=== PATIENT | male | born 1945 | race Caucasian/White ===

== ENCOUNTER → 2017-04-03 | Outpatient (CLI) | payer MEDICARE, OTHER | LOC: MW.CHGS 08:00 | PROVIDERS: ATTEND Surgery | DX: Z86.010 Personal history of colon polyps (principal); Z96.659 Presence of unspecified artificial knee joint; Z80.9 Family history of malignant neoplasm, unspecified | CPT/HCPCS: 99204 ==

== ENCOUNTER 2017-04-28 09:02 | Day surgery (SDC) | payer MEDICARE, OTHER ==
[~2017-04-28 09:02] MED LIST: Lactated Ringers 1,000 ML IV SCH; Midazolam 1 MG/ML 2 ML SDV ONE; Propofol 200 MG/20 ML SDV ONE; fentaNYL 100 MCG/2 ML SDV ONE
--- NOTE | 2017-04-28 10:56 | PCM.PREANE ---
Preanesthetic Assessment - Anesthesia/Transfusion/Family Hx Anesthesia History: Prior Anesthesia Without Reaction Other Type of Anesthesia Reaction Comment: Reports with Pin removal they thought I was asleep and was not Family History of Anesthesia Reaction: No Transfusion History: No Prior Transfusion(s) Intubation History: Unknown - Review of Systems General: No Symptoms Pulmonary: No Symptoms Cardiovascular: No Symptoms Gastrointestinal: No symptoms Neurological: No Symptoms Other: Reports: None - Physical Assessment NPO Status Date: 04/27/17 NPO Status Time: 23:30 O2 Sat by Pulse Oximetry: 98 Respiratory Rate: 16 Vital Signs: Last Vital Signs Temp 36.3 C 04/28/17 10:31 Pulse 59 L 04/28/17 10:31 Resp 16 04/28/17 10:31 BP 140/78 04/28/17 10:31 Pulse Ox 98 04/28/17 10:31 Height: 1.88 m Weight: 115.212 kg ASA Class: 3 Mental Status: Alert & Oriented x3 Airway Class: Mallampati = 2 Dentition: Reports: Normal Dentition Thyro-Mental Finger Breadths: 3 Mouth Opening Finger Breadths: 3 ROM/Head Extension: Full Lungs: Clear to auscultation, Normal respiratory effort Cardiovascular: Regular Rate, Regular Rhythm - Allergies Allergies/Adverse Reactions: Allergies Allergy/AdvReac Type Severity Reaction Status Date / Time No Known Allergies Allergy Verified 12/08/14 13:31 - Blood Blood Available: No - Anesthesia Plan Pre-Op Medication Ordered: None - Acknowledgements Anesthesia Type Planned: MAC Pt an Appropriate Candidate for the Planned Anesthesia: Yes Alternatives and Risks of Anesthesia Discussed w Pt/Guardian: Yes Pt/Guardian Understands and Agrees with Anesthesia Plan: Yes PreAnesthesia Questionnaire HEENT History: Reports: None Cardiovascular History: Reports: PVD (s/p carotid endarectomy), Other (See Below ) (h/o bradicardia on EKG) Gastrointestinal History: Reports: Colon Polyp Genitourinary History: Reports: Renal Calculus Musculoskeletal History: Reports: Arthritis, Fracture Endocrine/Metabolic History: Reports: Obesity/BMI 30+ - Past Surgical History Head Surgeries/Procedures: Reports: None HEENT Surgical History: Reports: Cataract Surgery, Tonsillectomy Cardiovascular Surgical History: Reports: Carotid Endarterectomy GI Surgical History: Reports: Colonoscopy Musculoskeletal Surgical History: Reports: Knee Replacement Other Musculoskeletal Surgeries/Procedures:: hx prophylactic pinning of tibia, removal of pin, left TKA - SUBSTANCE USE Smoking Status *Q: Never Smoker Second Hand Smoke Exposure: No Days Per Week of Alcohol Use: 6 Number of Drinks Per Day: 1 Total Drinks Per Week: 6 Recreational Drug Use History: No - HOME MEDS Home Medications: Home Meds Aspirin 0.5 tab PO ASDIRECTED 04/24/17 [History] - CURRENT (IN HOUSE) MEDS Current Meds: Current Medications Lactated Ringer's (Ringers, Lactated) 1,000 mls @ 125 mls/hr IV ASDIRECTED [facility] Last Admin: 04/28/17 10:33 Dose: 125 mls/hr Discontinued Medications Fentanyl (Sublimaze) Confirm Administered Dose 100 mcg .ROUTE .STK-MED ONE Stop: 04/28/17 07:20 Midazolam HCl (Versed 1 Mg/Ml) Confirm Administered Dose 2 mg .ROUTE .STK-MED ONE Stop: 04/28/17 07:20 Propofol (Diprivan 20 Ml) Confirm Administered Dose 200 mg .ROUTE .STK-MED ONE Stop: 04/28/17 07:20
[2017-04-28] MEDS ORDERED: Propofol 200 MG/20 ML SDV ONE (13:00)
--- NOTE | 2017-04-28 13:26 | PCM.OPNOTE ---
- General Post-Op/Procedure Note Date of Surgery/Procedure: 04/28/17 Operative Procedure(s): Colonoscopy w/ cold ascending colon polypectomy X2 Pre Op Diagnosis: Hx of colon polyps Post-Op Diagnosis: Ascending colon polyp X2. Severe sigmoid diverticulosis Anesthesia Technique: MAC (ASA III) Primary Surgeon: Aren Gallagher Condition: Good Free Text/Narrative:: Dictation [id number] CPT code [id number]
[2017-04-28] MEDS ORDERED: Lactated Ringers 1,000 ML IV SCH (13:30)
--- NOTE | 2017-04-28 13:39 | PCM.POSTAN ---
POST ANESTHESIA ASSESSMENT - MENTAL STATUS Mental Status: alert, oriented - RESPIRATORY Respiratory Status: respiratory rate WNL, airway patent, O2 saturation stable - CARDIOVASCULAR CV Status: pulse rate WNL, blood pressure stable - GASTROINTESTINAL GI Status: no symptoms - POST OP HYDRATION Hydration Status: adequate & stable - OBSERVATIONS Free Text/Narrative:: no anesthesia problems
[2017-04-28 13:45] VITALS: BP 127/75
--- NOTE | 2017-04-28 21:05 | OR ---
SURGEON: Aren Gallagher M.D. DATE OF PROCEDURE: 04/28/2017 OPERATION PERFORMED: Colonoscopy with cold ascending colon polypectomy x2. ANESTHESIA: MAC. ASA CLASSIFICATION: III. PREOPERATIVE DIAGNOSIS: Personal history of colon polyps. POSTOPERATIVE DIAGNOSES: 1. Ascending colon polyps x2. 2. Sigmoid diverticulosis. DESCRIPTION OF PROCEDURE: The patient was taken to the endoscopy room and positioned on the endoscopy table in the left lateral decubitus position. Time-out was called for appropriate identification of the patient and procedure. Monitored anesthesia care was provided. The colonoscope was inserted into the rectum and advanced with minimal difficulty to the cecum. Prep was fair. Once the colonoscope was advanced into the cecum, it was retroflexed to visualize the ascending colon from below, then straightened and slowly withdrawn. Two small polyps were encountered in the ascending colon and removed with the cold biopsy forceps. The remainder of the ascending colon, hepatic flexure, transverse colon, splenic flexure, and descending colon showed no tumors, polyps, diverticula, or angiodysplastic changes. The patient does have severe sigmoid diverticular disease with multiple large mouth diverticula. No stricture, spasm, or bleeding was noted. No other polyps were encountered. Once the colonoscope was withdrawn to the rectum, it was retroflexed to visualize the anal orifice from above. No tumors, polyps, or acute hemorrhoidal changes were noted. The colonoscope was then straightened, the rectum aspirated, and the colonoscope removed. The patient tolerated the procedure well and was taken to recovery room in stable condition. BERNIE / LYNDSEY /[id number]
== END 2017-04-28 13:55 | disposition home or self-care (01) ==
LOC: MW.SDS 09:02
PROVIDERS: ATTEND Surgery
PROC: 0DBK8ZZ Excision of Ascending Colon, Via Natural or Artificial Opening Endoscopic (ICD-10-PCS; principal; 2017-04-28)
DX: Z12.11 Encounter for screening for malignant neoplasm of colon (principal); D12.2 Benign neoplasm of ascending colon; K57.30 Diverticulosis of large intestine without perforation or abscess without bleeding; M17.0 Bilateral primary osteoarthritis of knee; E66.9 Obesity, unspecified; Z86.010 Personal history of colon polyps; Z79.82 Long term (current) use of aspirin; Z98.49 Cataract extraction status, unspecified eye; Z96.652 Presence of left artificial knee joint; Z98.890 Other specified postprocedural states; Z68.32 Body mass index [BMI] 32.0-32.9, adult; Z87.442 Personal history of urinary calculi
CPT/HCPCS: 45380; 88305; J2250; J3010; J7120; 00810; J2704

== ENCOUNTER 2020-01-12 06:35 | Day surgery (SDC) | payer MEDICARE, OTHER ==
[~2020-01-12 06:35] MED LIST changes: +Famotidine 20 MG/2 ML SDV IVPUSH SCH; -Lactated Ringers 1,000 ML IV SCH; -Midazolam 1 MG/ML 2 ML SDV ONE; -Propofol 200 MG/20 ML SDV ONE; +Ropivacaine 49.25 ML, Ketorolac 30 MG, EPINEPHrine 0.5 MG, cloNIDine 80 MCG in Sodium C... INJECT SCH; +Scopolamine 1.5 MG Transdermal Patch TRDERM SCH; -fentaNYL 100 MCG/2 ML SDV ONE
[2020-01-12] MEDS: Lactated Ringers 1,000 ML IV SCH ×3 (07:13→21:59)
[2020-01-12] MEDS ORDERED: Ondansetron 4 MG/2 ML SDV ONE (07:17)
[2020-01-12] MEDS ORDERED: fentaNYL 100 MCG/2 ML SDV ONE (07:17)
[2020-01-12] MEDS ORDERED: Lidocaine 2% 100 MG/5 ML Syringe ONE (07:17)
[2020-01-12] MEDS ORDERED: Propofol 200 MG/20 ML SDV ONE ×3 (07:17→09:51)
[2020-01-12] MEDS ORDERED: Dexamethasone 4 MG/ML 5 ML MDV ONE (07:18)
[2020-01-12] MEDS ORDERED: Midazolam 1 MG/ML 2 ML SDV ONE (07:47)
--- NOTE | 2020-01-12 07:49 | PCM.PREANE ---
Preanesthetic Assessment - Anesthesia/Transfusion/Family Hx Anesthesia History: Prior Anesthesia Without Reaction Other Type of Anesthesia Reaction Comment: Reports with Pin removal they thought I was asleep and was not Family History of Anesthesia Reaction: No Transfusion History: No Prior Transfusion(s) Intubation History: Unknown - Review of Systems General: No Symptoms Pulmonary: No Symptoms Cardiovascular: No Symptoms Gastrointestinal: No Symptoms Neurological: No Symptoms Other: Reports: None - Physical Assessment NPO Status Date: 01/11/20 NPO Status Time: 12:00 Vital Signs: Last Vital Signs Temp Pulse 71 01/12/20 06:45 Resp 16 01/12/20 06:45 BP 150/79 H 01/12/20 06:45 Pulse Ox 99 01/12/20 06:45 Height: 6 ft 1 in Weight: 117.934 kg ASA Class: 1 Mental Status: Alert & Oriented x3 Airway Class: Mallampati = 2 Dentition: Reports: Normal Dentition ROM/Head Extension: Full Lungs: Clear to Auscultation, Normal Respiratory Effort Cardiovascular: Regular Rate, Regular Rhythm - Allergies Allergies/Adverse Reactions: Allergies Allergy/AdvReac Type Severity Reaction Status Date / Time No Known Allergies Allergy Verified 01/07/20 11:08 - Blood Blood Available: No - Anesthesia Plan Pre-Op Medication Ordered: None - Acknowledgements Anesthesia Type Planned: Spinal Pt an Appropriate Candidate for the Planned Anesthesia: Yes Alternatives and Risks of Anesthesia Discussed w Pt/Guardian: Yes Pt/Guardian Understands and Agrees with Anesthesia Plan: Yes Additional Comments: PMH: denies htn PLAN: spinal with sedation PreAnesthesia Questionnaire HEENT History: Reports: Cataract Cardiovascular History: Reports: PVD, Other (See Below) Gastrointestinal History: Reports: Colon Polyp, Diverticulosis Genitourinary History: Reports: Renal Calculus Other Genitourinary History: passed 1 kidney stone 35 years ago Musculoskeletal History: Reports: Osteoarthritis Endocrine/Metabolic History: Reports: Obesity/BMI 30+ Oncologic (Cancer) History: Reports: Other (See Below) Other Oncologic History: hx of skin cancer removed from nose- unknown type - Past Surgical History Head Surgeries/Procedures: Reports: None HEENT Surgical History: Reports: Cataract Surgery, Tonsillectomy Cardiovascular Surgical History: Reports: Carotid Endarterectomy GI Surgical History: Reports: Colonoscopy Musculoskeletal Surgical History: Reports: Knee Replacement, ORIF Other Musculoskeletal Surgeries/Procedures:: ORIF left tibia- hardware removed, left TKA Dermatological Surgical History: Reports: Skin Biopsy - SUBSTANCE USE Smoking Status *Q: Never Smoker Recreational Drug Use History: No - HOME MEDS Home Medications: Home Meds Aspirin 0.5 tab PO ASDIRECTED 04/24/17 [History] Sildenafil Citrate 40 - 60 mg PO ASDIRECTED PRN 01/07/20 [History] - CURRENT (IN HOUSE) MEDS Current Meds: Current Medications Famotidine (Pepcid) 40 mg IVPUSH ONARRIVE [facility] Last Admin: 01/12/20 07:17 Dose: 40 mg Cefazolin Sodium/Dextrose 2 gm (/ Premix) 50 mls @ 100 mls/hr IV ONCALL [facility] Ropivacaine 49.25 ml/Ketorolac Tromethamine 30 mg/Epinephrine HCl 0.5 mg/ Clonidine HCl 80 mcg/ Sodium Chloride 75 mls @ 50 mls/sec INJECT ASDIRECTED [facility] Lactated Ringer's (Ringers, Lactated) 1,000 mls @ 100 mls/hr IV ASDIRECTED [facility] Last Admin: 01/12/20 07:13 Dose: 100 mls/hr Scopolamine (Transderm-Scop) 1.5 mg TRDERM ON[facility] Last Admin: 01/12/20 07:13 Dose: 1.5 mg Discontinued Medications Dexamethasone (Dexamethasone) Confirm Administered Dose 20 mg .ROUTE .STK-MED ONE Stop: 01/12/20 07:19 Fentanyl (Sublimaze) Confirm Administered Dose 100 mcg .ROUTE .STK-MED ONE Stop: 01/12/20 07:18 Lidocaine HCl (Xylocaine 2%) Confirm Administered Dose 100 mg .ROUTE .STK-MED ONE Stop: 01/12/20 07:18 Ondansetron HCl (Zofran) Confirm Administered Dose 4 mg .ROUTE .STK-MED ONE Stop: 01/12/20 07:18 Propofol (Diprivan 20 Ml) Confirm Administered Dose 200 mg .ROUTE .STK-MED ONE Stop: 01/12/20 07:18 Propofol (Diprivan 20 Ml) Confirm Administered Dose 400 mg .ROUTE .STK-MED ONE Stop: 01/12/20 07:25 Tranexamic Acid (Cyklokapron) 1,000 mg TOP ASDIRECTED ONE Stop: 01/12/20 06:01
[2020-01-12] MEDS ORDERED: ceFAZolin/Dextrose,Iso-Osmotic 2 GM/50 ML Duplex Bag IV ONE (07:50)
[2020-01-12] MEDS ORDERED: ceFAZolin 2 GM in Premix Bag 1 BAG IV SCH (08:00)
[2020-01-12] MEDS ORDERED: ePHEDrine 50 MG/ML SDV ONE (08:29)
[2020-01-12] MEDS ORDERED: fentaNYL 100 MCG/2 ML SDV IVPUSH PRN (08:43)
[2020-01-12] MEDS ORDERED: Acetaminophen/oxyCODONE 325-5 MG Tab PO PRN (09:59)
[2020-01-12] MEDS ORDERED: Docusate Sodium 100 MG Cap PO PRN (09:59)
[2020-01-12] MEDS ORDERED: Bisacodyl 10 MG Supp RECTAL PRN (09:59)
[2020-01-12] MEDS ORDERED: Aluminum Hydroxide/Magnesium Hydroxide/Simethicone Susp 30 ML Cup PO PRN (09:59)
[2020-01-12] MEDS ORDERED: Sodium Chloride 0.9% 10 ML Syringe FLUSH PRN (09:59)
[2020-01-12] MEDS ORDERED: Acetaminophen/oxyCODONE 325-10 MG Tab PO PRN (09:59)
[2020-01-12] MEDS ORDERED: diphenhydrAMINE 25 MG Cap PO PRN (09:59)
[2020-01-12] MEDS ORDERED: Sodium Chloride 0.9% 2.5 ML Syringe FLUSH PRN (09:59)
[2020-01-12] MEDS ORDERED: Morphine 2 MG/ML Syringe IVPUSH PRN (09:59)
[2020-01-12] MEDS ORDERED: traMADol 50 MG Tab PO PRN (09:59)
[2020-01-12] MEDS ORDERED: Ondansetron 4 MG/2 ML SDV IVPUSH PRN (09:59)
--- NOTE | 2020-01-12 11:03 | CR ---
Right knee: Portable supine AP and crosstable lateral views of the right knee were obtained. Comparison: Previous right knee study of 12/16/19. Medial hemiarthroplasty is noted. Components are aligned. Soft tissue air is noted from the surgical procedure. Vascular calcification is noted. Skin cory are present. Impression: 1. Recently placed medial hemiarthroplasty. 2. Other findings which are believed to be incidental as noted above. Diagnostic code #2 This report was dictated in [place] Standard Time
--- NOTE | 2020-01-12 11:08 | PCM.POSTAN ---
POST ANESTHESIA ASSESSMENT - MENTAL STATUS Mental Status: Alert, Oriented - VITAL SIGNS Vital Signs: Last Vital Signs Temp 37.3 C 01/12/20 10:20 Pulse 60 01/12/20 11:02 Resp 14 01/12/20 11:02 BP 110/57 L 01/12/20 11:02 Pulse Ox 95 01/12/20 11:02 - RESPIRATORY Respiratory Status: Respiratory Rate WNL, Airway Patent, O2 Saturation Stable - CARDIOVASCULAR CV Status: Pulse Rate WNL, Blood Pressure Stable - GASTROINTESTINAL GI Status: No Symptoms - PAIN Pain Score: 0 - POST OP HYDRATION Hydration Status: Adequate & Stable - OBSERVATIONS Free Text/Narrative:: sensory level T12
[2020-01-12] MEDS: Ketorolac 15 MG/ML SDV IVPUSH SCH ×3 (11:43→21:43)
--- NOTE | 2020-01-12 14:47 | PCM.OPNOTE ---
- General Post-Op/Procedure Note Date of Surgery/Procedure: 01/12/20 Operative Procedure(s): right pka Pre Op Diagnosis: right knee primary oa Post-Op Diagnosis: Same Anesthesia Technique: Combo Spinal/Epidural, Moderate Sedation Primary Surgeon: Jorge Cortez Language Therapist: Ginny Barney EBL in mLs: 75 Complications: None Condition: Good Free Text/Narrative:: Intake & Output 01/11/20 01/12/20 01/12/20 22:59 06:59 14:59 Intake Total 1200 Output Total 250 Balance 950
--- NOTE | 2020-01-12 17:13 | PCM.DCSUM1 ---
Discharge Summary - Hospital Course Diagnosis: Stroke: No - Discharge Data Discharge Date: 01/13/20 Discharge Disposition: Home, Self-Care 01 Condition: Good - Referral to Home Health Primary Care Physician: Nelson Portillo MD - Discharge Diagnosis/Problem(s) (1) Arthritis of knee, right SNOMED Code(s): 943588779 ICD Code: M17.11 - UNILATERAL PRIMARY OSTEOARTHRITIS, RIGHT KNEE Status: Acute Current Visit: Yes - Patient Summary/Data Operative Procedure(s) Performed: right pka Consults: Consultations 01/12/20 09:59 OT Evaluation and Treatment [CONS] Routine PT Evaluation and Treatment [CONS] Routine - Patient Instructions Diet: Usual Diet as Tolerated Activity: Apply Ice, As Tolerated, Full Weight Bearing, No Strenuous Activities Driving: Do Not Drive Showering/Bathing: May Shower Wound/Incision Care: Keep Operative Site/Wound Site Clean and Dry, Change Dressing Daily Notify Provider of: Fever, Increased Pain, Swelling and Redness, Drainage, Nausea and/or Vomiting - Discharge Plan *PRESCRIPTION DRUG MONITORING PROGRAM REVIEWED*: Yes *COPY OF PRESCRIPTION DRUG MONITORING REPORT IN PATIENT KARLEE: No Home Medications: Home Meds Aspirin 0.5 tab PO ASDIRECTED 04/24/17 [History] Sildenafil Citrate 40 - 60 mg PO ASDIRECTED PRN 01/07/20 [History] Oxygen Therapy Mode: Room Air - Discharge Summary/Plan Comment DC Time >30 min.: No - General Info Date of Service: 01/13/20 Functional Status: Reports: Pain Controlled, Tolerating Diet, Ambulating, Urinating - Review of Systems General: Reports: No Symptoms HEENT: Reports: No Symptoms Pulmonary: Reports: No Symptoms Cardiovascular: Reports: No Symptoms Gastrointestinal: Reports: No Symptoms Genitourinary: Reports: No Symptoms Musculoskeletal: Reports: Leg Pain, Joint Pain, Joint Swelling Skin: Reports: No Symptoms Neurological: Reports: No Symptoms Psychiatric: Reports: No Symptoms - Patient Data Vitals - Most Recent: Last Vital Signs Temp 37.3 C 01/12/20 10:20 Pulse 60 01/12/20 11:02 Resp 14 01/12/20 11:02 BP 110/57 L 01/12/20 11:02 Pulse Ox 95 01/12/20 11:02 Weight - Most Recent: 117.934 kg I&O - Last 24 hours: Intake & Output 01/12/20 01/12/20 01/12/20 06:59 14:59 22:59 Intake Total 1200 Output Total 250 Balance 950 Lab Results - Last 24 hrs: Laboratory Results - last 24 hr 01/12/20 Range/Units 07:13 Blood Type A POSITIVE Antibody Screen NEGATIVE Med Orders - Current: Current Medications Al Hydroxide/Mg Hydroxide (Mag-Al Plus) 30 ml PO Q4H PRN PRN Reason: Indigestion Aspirin (Aspirin) 325 mg PO DAILY [facility] Bisacodyl (Dulcolax) 10 mg RECTAL DAILY PRN PRN Reason: Constipation Celecoxib (Celebrex) 200 mg PO BID [facility] Diphenhydramine HCl (Benadryl) 25 - 50 mg PO Q6H PRN PRN Reason: Itching Docusate Sodium (Colace) 100 mg PO BID PRN PRN Reason: Constipation Famotidine (Pepcid) 40 mg IVPUSH ONARRIVE [facility] Last Admin: 01/12/20 07:17 Dose: 40 mg Famotidine (Pepcid) 40 mg PO ACBREAKFAST [facility] Fentanyl (Sublimaze) 50 mcg IVPUSH Q5M PRN PRN Reason: Pain (severe 7-10) Stop: 01/13/20 08:44 Cefazolin Sodium/Dextrose 2 gm (/ Premix) 50 mls @ 100 mls/hr IV ONCALL [facility] Ropivacaine 49.25 ml/Ketorolac Tromethamine 30 mg/Epinephrine HCl 0.5 mg/ Clonidine HCl 80 mcg/ Sodium Chloride 75 mls @ 50 mls/sec INJECT ASDIRECTED [facility] Lactated Ringer's (Ringers, Lactated) 1,000 mls @ 100 mls/hr IV ASDIRECTED [facility] Last Admin: 01/12/20 11:43 Dose: 100 mls/hr Cefazolin Sodium/Dextrose 2 gm (/ Premix) 50 mls @ 100 mls/hr IV Q8H [facility] Stop: 01/13/20 02:29 Ketorolac Tromethamine (Toradol) 15 mg IVPUSH Q6H [facility] Stop: 01/13/20 05:00 Last Admin: 01/12/20 16:45 Dose: 15 mg Morphine Sulfate (Morphine) 1 - 2 mg IVPUSH Q3H PRN PRN Reason: Pain Ondansetron HCl (Zofran) 4 mg IVPUSH Q6H PRN PRN Reason: Nausea/Vomiting Oxycodone/Acetaminophen (Percocet 325-5 Mg) 1 - 2 tab PO Q4H PRN PRN Reason: Pain Oxycodone/Acetaminophen (Percocet 325-10 Mg) 1 - 2 tab PO Q4H PRN PRN Reason: Pain Polyethylene Glycol (Miralax) 17 gm PO DAILY [facility] Scopolamine (Transderm-Scop) 1.5 mg TRDERM ONARRIVE [facility] Last Admin: 01/12/20 07:13 Dose: 1.5 mg Sodium Chloride (Saline Flush) 10 ml FLUSH ASDIRECTED PRN PRN Reason: Keep Vein Open Sodium Chloride (Saline Flush) 2.5 ml FLUSH ASDIRECTED PRN PRN Reason: Keep Vein Open Tramadol HCl (Ultram) 50 - 100 mg PO Q6H PRN PRN Reason: Pain Discontinued Medications Cefazolin Sodium/Dextrose (Ancef) Confirm Administered Dose 2 gm IV .STK-MED ONE Stop: 01/12/20 07:51 Dexamethasone (Dexamethasone) Confirm Administered Dose 20 mg .ROUTE .STK-MED ONE Stop: 01/12/20 07:19 Ephedrine Sulfate (Ephedrine Sulfate) Confirm Administered Dose 50 mg .ROUTE .STK-MED ONE Stop: 01/12/20 08:30 Fentanyl (Sublimaze) Confirm Administered Dose 100 mcg .ROUTE .STK-MED ONE Stop: 01/12/20 07:18 Lidocaine HCl (Xylocaine 2%) Confirm Administered Dose 100 mg .ROUTE .STK-MED ONE Stop: 01/12/20 07:18 Midazolam HCl (Versed 1 Mg/Ml) Confirm Administered Dose 2 mg .ROUTE .STK-MED ONE Stop: 01/12/20 07:48 Ondansetron HCl (Zofran) Confirm Administered Dose 4 mg .ROUTE .STK-MED ONE Stop: 01/12/20 07:18 Propofol (Diprivan 20 Ml) Confirm Administered Dose 200 mg .ROUTE .STK-MED ONE Stop: 01/12/20 07:18 Propofol (Diprivan 20 Ml) Confirm Administered Dose 400 mg .ROUTE .STK-MED ONE Stop: 01/12/20 07:25 Propofol (Diprivan 20 Ml) Confirm Administered Dose 200 mg .ROUTE .STK-MED ONE Stop: 01/12/20 09:52 Tranexamic Acid (Cyklokapron) 1,000 mg TOP ASDIRECTED ONE Stop: 01/12/20 06:01 Tranexamic Acid (Cyklokapron) Confirm Administered Dose 3,000 mg .ROUTE .STK- MED ONE Stop: 01/12/20 07:51 - Exam General: Reports: Alert, Oriented, Cooperative, Mild Distress HEENT: Reports: Pupils Equal, Pupils Reactive, EOMI, Mucous Membr. Moist/[place] Neck: Reports: Supple, Trachea Midline Lungs: Reports: Normal Respiratory Effort Extremities: Leg Pain, Limited Range of Motion Skin: Reports: Warm, Dry, Intact Wound/Incisions: Reports: Healing Well, Dressing Dry and Intact, No Drainage Neurological: Reports: No New Focal Deficit Psy/Mental Status: Reports: Alert, Normal Affect, Normal Mood Discharge Operative/Procedures - Procedures Performed Operations: right medial pka LP Indication: CSF analysis Arterial Line Indication: hemodynamic monitoring Chest Tube Indication: pneumothorax Thoracentesis Indication: pleural effusion Paracentesis Indication: ascites
--- NOTE | 2020-01-12 17:22 | OR ---
SURGEON: Jorge Cortez DATE OF PROCEDURE: 01/12/2020 PREOPERATIVE DIAGNOSIS: Right knee primary osteoarthritis. POSTOPERATIVE DIAGNOSIS: Right knee primary osteoarthritis. PROCEDURE: Right knee partial knee arthroplasty medially. PRIMARY SURGEON: Jorge Cortez DO. WEIGHT INSPECTOR: ASH Lau. ROLE OF WEIGHT INSPECTOR: Nurse practitioner, ASH Lau, played an essential role in assisting in this case, helping to position the patient, retract structures as needed, as well as suturing and cutting sutures as indicated. Her presence improved patient's safety and decreased operative time. ANESTHESIA: Spinal plus conscious sedation. FLUID: Lactated Ringer's solution. ESTIMATED BLOOD LOSS: 75 mL. COMPLICATION: None. SPECIMEN: None. DISCHARGE DISPOSITION: Stable to PACU. INSTRUMENTATION: DePuy Sigma fixed bearing size 4 tibial tray; size 4 femur; and size 4, 7 mm polyethylene fixed bearing tibial insert. HISTORY AND INDICATIONS FOR THE PROCEDURE: The patient was seen preoperatively by myself in the clinic. He had failed nonoperative treatment. Preoperative imaging confirmed the above-mentioned diagnosis. Risks and benefits of the procedure were explained to the patient. Informed consent was obtained. DETAILS OF PROCEDURE: The patient was seen preoperatively by myself and the Anesthesia staff in the preoperative holding area where the operative site was marked. He was brought to the operative suite by the Anesthesia staff where spinal sedation was administered plus conscious sedation. A well-padded tourniquet was placed onto his right thigh. The left lower extremity was placed into a stirrup. All extremities were found to be well padded. The right lower extremity was placed into a leg hlom. The right lower extremity was then prepped and draped in a sterile manner. Time-out was called identifying the correct patient, the correct procedure, the correct site, and that antibiotics had been given within appropriate period of time. The right lower extremity was exsanguinated. Tourniquet was raised to 250 mmHg and let down at 48 minutes after cementing. A midline incision was made two fingerbreadths proximal to the patella down to the level of the tibial tubercle. Medial parapatellar arthrotomy was made. Bleeding was controlled with Bovie electrocautery. Gelpis were used for initial retraction. The anterior portion of the medial meniscus was removed. The fat pad was removed. The proximal medial tibial was visualized using Bovie electrocautery. An extramedullary tibial guide was then inserted in line with the tibial tubercle and the 2nd metatarsal and pinned into position. A vertical cut was made in line with the anterior superior iliac spine just medial to the medial tibial spine and then a horizontal cut was made. I inserted my paddle, it was not wide enough, so I made another cut which was correct at 7 mm with a 7 mm paddle. I then removed the insert. I then brought the knee into extension and pinned my distal femoral cutting guide in position. I then made my distal femoral cut. I then removed the cutting guide and marked mid portion of my paddle in flexion and extension and marlen a line with this with a Bovie. I then inserted my chamfer guide in line with this line that I previously made. I pinned this in position and made my three chamfer cuts. I then removed my guide and then used an osteotome to remove any extra bone that I cut. I had also drilled two lug holes prior with a guide. I then inserted my distal femoral trial, which went on well. I removed that and then placed my tibial base plate guide for the fin. I used a lamina anthropologist physical to hold this in place. I then used a gouge and created a slot for my fin on the keel for the base plate. I then drilled the lug for that. I then removed all my components, copiously irrigated with saline, and then cemented my components in place. The tourniquet was let down during this time at 48 minutes. After the cement had dried, I removed any extra cement and then inserted my final base plate. I ranged the knee and this provided excellent stability throughout range of motion. We then copiously irrigated with saline and my diploma dental assistant closed with 0 Stratafix and #1 Stratafix for the parapatellar arthrotomy and subcutaneous levels and then closed with cory followed by Betadine-soaked Adaptic, fluffs, and an Heath wrap. The patient was allowed to awaken from conscious sedation, taken to the PACU in stable condition. [id number] / MODL /[id number]
[2020-01-12] MEDS: ceFAZolin 2 GM in Premix Bag 1 BAG IV SCH (18:11)
[2020-01-13] MEDS: ceFAZolin 2 GM in Premix Bag 1 BAG IV SCH (01:31)
[2020-01-13] MEDS: Ketorolac 15 MG/ML SDV IVPUSH SCH (05:11)
[2020-01-13 06:34] LABS: BLOOD UREA NITROGEN,BUN 14 mg/dL (7.0-18.0); CARBON DIOXIDE,CO2 23.7 mmol/L (21.0-32.0); CHLORIDE,CL 105 mmol/L (98-107); GLUCOSE RANDOM 110 mg/dL (74-106); POTASSIUM,K 3.9 mmol/L (3.5-5.1); SODIUM,NA 140 mmol/L (136-148)
[2020-01-13] MEDS ORDERED: Famotidine 20 MG Tab PO SCH (07:30)
[2020-01-13 07:38] VITALS: BP 146/87; PULSE 72
[2020-01-13] MEDS ORDERED: Celecoxib 100 MG Cap PO SCH (09:00)
[2020-01-13] MEDS ORDERED: Polyethylene Glycol 3350 Powder 17 GM Packet PO SCH (09:00)
[2020-01-13] MEDS ORDERED: Aspirin 325 MG Tab PO SCH (09:00)
== END 2020-01-13 11:28 | disposition home or self-care (01) ==
LOC: MW.SDS 06:35 → MW.MS 06:36 → UNDOADMIN 06:36 → EDSTATUS 08:00 → MW.MS 15:13 → MW.SDS 01-13 11:28
PROVIDERS: ATTEND Orthopaedic Surgery
DX: M17.11 Unilateral primary osteoarthritis, right knee (principal); I10 Essential (primary) hypertension; E66.9 Obesity, unspecified; Z79.82 Long term (current) use of aspirin; Z96.652 Presence of left artificial knee joint; Z68.34 Body mass index [BMI] 34.0-34.9, adult
CPT/HCPCS: 27446; 36415; 73560; 80048; 85014; 85018; 86850; 86900; 86901; 97110; 97116; 97161; A9270; C1776; J0690; J1100; J1885; J2001; J2250; J2405; J2704; J3010; J3490; J7120

== ENCOUNTER 2020-08-04 06:32 | Day surgery (SDC) | payer MEDICARE, OTHER ==
[~2020-08-04 06:32] MED LIST changes: -Famotidine 20 MG/2 ML SDV IVPUSH SCH; +Lactated Ringers 1,000 ML IV SCH; -Ropivacaine 49.25 ML, Ketorolac 30 MG, EPINEPHrine 0.5 MG, cloNIDine 80 MCG in Sodium C... INJECT SCH; -Scopolamine 1.5 MG Transdermal Patch TRDERM SCH; +cefOXitin 2 GM in Premix Bag 1 BAG IV ONE
[2020-08-04] MEDS ORDERED: Lidocaine 2% 5 ML SDV ONE (07:02)
[2020-08-04] MEDS ORDERED: Propofol 200 MG/20 ML SDV ONE (07:02)
[2020-08-04] MEDS ORDERED: fentaNYL 100 MCG/2 ML SDV ONE (07:02)
--- NOTE | 2020-08-04 07:25 | PCM.PREANE ---
Preanesthetic Assessment - Anesthesia/Transfusion/Family Hx Anesthesia History: Prior Anesthesia Without Reaction Other Type of Anesthesia Reaction Comment: Reports with Pin removal they thought I was asleep and was not Family History of Anesthesia Reaction: No Transfusion History: No Prior Transfusion(s) Intubation History: Unknown - Review of Systems General: No Symptoms Pulmonary: No Symptoms Cardiovascular: No Symptoms Gastrointestinal: Other (h/o colon polyp 3 years ago) Neurological: No Symptoms Other: Reports: None - Physical Assessment Height: 6 ft 1 in Weight: 108.862 kg ASA Class: 2 Mental Status: Alert & Oriented x3 Airway Class: Mallampati = 2 Dentition: Reports: Normal Dentition Thyro-Mental Finger Breadths: 3 Mouth Opening Finger Breadths: 2 ROM/Head Extension: Full Lungs: Clear to Auscultation, Normal Respiratory Effort Cardiovascular: Regular Rate, Regular Rhythm - Allergies Allergies/Adverse Reactions: Allergies Allergy/AdvReac Type Severity Reaction Status Date / Time No Known Allergies Allergy Verified 07/31/20 13:33 - Blood Blood Available: No - Anesthesia Plan Pre-Op Medication Ordered: None - Acknowledgements Anesthesia Type Planned: MAC Pt an Appropriate Candidate for the Planned Anesthesia: Yes Alternatives and Risks of Anesthesia Discussed w Pt/Guardian: Yes Pt/Guardian Understands and Agrees with Anesthesia Plan: Yes PreAnesthesia Questionnaire HEENT History: Reports: Cataract Cardiovascular History: Reports: High Cholesterol Gastrointestinal History: Reports: Colon Polyp, Diverticulosis Genitourinary History: Reports: Renal Calculus Other Genitourinary History: hx of passing kidney stone Musculoskeletal History: Reports: Osteoarthritis Endocrine/Metabolic History: Reports: Obesity/BMI 30+ (BMI 31.7) Oncologic (Cancer) History: Reports: Other (See Below) Other Oncologic History: skin cancer removed from nose- unknown type - Past Surgical History Head Surgeries/Procedures: Reports: None HEENT Surgical History: Reports: Cataract Surgery, Tonsillectomy GI Surgical History: Reports: Colonoscopy ( x4) Musculoskeletal Surgical History: Reports: Knee Replacement (lt. TKR 7 months ago), Other (See Below) (pinning of tibia and subsequent pin removal) Other Musculoskeletal Surgeries/Procedures:: bilateral TKA Dermatological Surgical History: Reports: Skin Biopsy - SUBSTANCE USE Smoking Status *Q: Never Smoker Days Per Week of Alcohol Use: 7 Number of Drinks Per Day: 1 Total Drinks Per Week: 7 Recreational Drug Use History: No - HOME MEDS Home Medications: Home Meds Sildenafil Citrate 40 - 60 mg PO ASDIRECTED PRN 01/07/20 [History] - CURRENT (IN HOUSE) MEDS Current Meds: Current Medications Lactated Ringer's (Ringers, Lactated) 1,000 mls @ 125 mls/hr IV ASDIRECTED NICHELLE Discontinued Medications Fentanyl (Sublimaze) Confirm Administered Dose 100 mcg .ROUTE .STK-MED ONE Stop: 08/04/20 07:03 Cefoxitin Sodium 2 gm/ Premix 50 mls @ 100 mls/hr IV ONETIME ONE Stop: 08/04/20 06:59 Lidocaine (Xylocaine-Mpf 2%) Confirm Administered Dose 5 ml .ROUTE .STK-MED ONE Stop: 08/04/20 07:03 Propofol (Diprivan 20 Ml) Confirm Administered Dose 400 mg .ROUTE .STK-MED ONE Stop: 08/04/20 07:03
[2020-08-04] MEDS ORDERED: Sodium Chloride 0.9% 20 ML ONE (07:47)
[2020-08-04] MEDS ORDERED: cefOXitin 1 GM Vial ONE (07:47)
[2020-08-04] MEDS ORDERED: Glycopyrrolate 0.2 MG/ML SDV ONE (07:54)
--- NOTE | 2020-08-04 08:35 | PCM.OPNOTE ---
- General Post-Op/Procedure Note Date of Surgery/Procedure: 08/04/20 Operative Procedure(s): Colonoscopy with cold ascending colon, mid transverse colon, distal transverse colon and rectal polypectomies. Pre Op Diagnosis: Personal history of adenomatous colon polyps. Pancolonic diverticulosis. Post-Op Diagnosis: Ascending colon, mid transverse colon, distal transverse colon and rectal polyps. Pancolonic diverticulosis. Anesthesia Technique: MAC (ASA III) Primary Surgeon: Aren Gallagher Condition: Good Free Text/Narrative:: DICTATION 000607 CPT CODE 76448
[2020-08-04] MEDS ORDERED: Lactated Ringers 1,000 ML IV SCH (08:45)
[2020-08-04 08:55] VITALS: BP 121/64; PULSE 72
--- NOTE | 2020-08-04 09:03 | PCM.POSTAN ---
POST ANESTHESIA ASSESSMENT - MENTAL STATUS Mental Status: Alert, Oriented - VITAL SIGNS Vital Signs: Last Vital Signs Temp 36.4 C 08/04/20 06:45 Pulse 72 08/04/20 08:50 Resp 14 08/04/20 08:50 BP 121/64 08/04/20 08:50 Pulse Ox 98 08/04/20 08:50 - RESPIRATORY Respiratory Status: Respiratory Rate WNL, Airway Patent, O2 Saturation Stable - CARDIOVASCULAR CV Status: Pulse Rate WNL, Blood Pressure Stable, Other (slightly irregular HR, EKG shows A. fib- controlled rate) - GASTROINTESTINAL GI Status: No Symptoms - PAIN Pain Score: 0 - POST OP HYDRATION Hydration Status: Adequate & Stable - OBSERVATIONS Free Text/Narrative:: No anesthesia problems
--- NOTE | 2020-08-04 09:11 | CR ---
Chest: Portable view of the chest was obtained. Comparison: Prior chest x-ray of 12/30/19. Slight scar is noted within the right lung base. Lungs otherwise are clear. No acute parenchymal change is seen. Heart size is within normal limits for portable technique. Bony structures are grossly intact. Impression: 1. Nothing acute is seen on portable chest x-ray. Diagnostic code #2 This report was dictated in MDT
--- NOTE | 2020-08-04 09:26 | OR ---
SURGEON: Aren Gallagher M.D. DATE OF PROCEDURE: 08/04/2020 OPERATION PERFORMED: Colonoscopy with cold; ascending colon, mid transverse colon, distal transverse colon, and rectal polypectomy. PRIMARY SURGEON: Aren Gallagher MD. ANESTHESIA: MAC. ASA CLASSIFICATION: III. PREOPERATIVE DIAGNOSES: 1. Personal history of adenomatous colon polyps. 2. Diverticulosis. POSTOPERATIVE DIAGNOSES: 1. Ascending colon polyp. 2. Mid transverse colon polyp. 3. Distal transverse colon polyp. 4. Rectal polyp. 5. Pancolonic diverticulosis. DESCRIPTION OF PROCEDURE: The patient was taken to the endoscopy room and positioned on the endoscopy table in the left lateral decubitus position. Time-out was called for appropriate identification of the patient and procedure. Monitored anesthesia care was provided. The colonoscope was inserted into the rectum and advanced with moderate difficulty to the cecum. The prep was only fair as there was a moderate amount of solid fecal material in the distal bowel. Once the colonoscope was inserted to the cecum, this was identified by internal landmarks and external pressure. The colonoscope was retroflexed to visualize the ascending colon from below, then straightened, and slowly withdrawn. One polyp was encountered in the ascending colon and removed with a cold biopsy forceps. Diverticular changes were noted beginning in the ascending colon and extending throughout the entire length of the colon with the most significant area again being the sigmoid colon. Small polyps were also encountered in the mid transverse colon and distal transverse colon. These were separately removed and sent for separate histologic analysis. The hepatic and splenic flexures were well visualized. No polyps were encountered at those areas. The descending colon again shows diverticular changes, but no polyps. No polyps were encountered in the sigmoid colon which demonstrated severe diverticular change. No stricture, spasm, or bleeding was noted from any of the diverticula. Once the colonoscope was withdrawn to the rectum, another polyp was encountered and this was also removed with the cold biopsy forceps. The colonoscope was then retroflexed to visualize the anal orifice from above. Again no tumors or polyps were encountered in the retroflexed position and no significant hemorrhoidal changes are noted. The colonoscope was then straightened, the rectum aspirated, and the colonoscope removed. The patient tolerated the procedure well and was taken to recovery room in satisfactory condition. ANDCHRISTOPHE / MODL /[id number]
--- NOTE | 2020-08-04 09:39 | PCM48HPAN ---
Post Anesthesia Note - EVALUATION WITHIN 48HRS OF ANESTHETIC Vital Signs in Normal Range: Yes Patient Participated in Evaluation: Yes Respiratory Function Stable: Yes Airway Patent: Yes Cardiovascular Function Stable: Yes Hydration Status Stable: Yes Pain Control Satisfactory: Yes Nausea and Vomiting Control Satisfactory: Yes Mental Status Recovered: Yes Vital Signs: Last Vital Signs Temp 36.4 C 08/04/20 06:45 Pulse 72 08/04/20 08:50 Resp 14 08/04/20 08:50 BP 121/64 08/04/20 08:50 Pulse Ox 98 08/04/20 08:50 - COMMENTS/OBSERVATIONS Free Text/Narrative:: No anesthesia problems, patient sent to dr Sims office for the care of new george marcum
[2020-08-04 10:21] LABS: BLOOD UREA NITROGEN,BUN 13 mg/dL (7.0-18.0); CARBON DIOXIDE,CO2 25.9 mmol/L (21.0-32.0); CHLORIDE,CL 105 mmol/L (98-107); GLUCOSE RANDOM 108 mg/dL (74-106); POTASSIUM,K 4.5 mmol/L (3.5-5.1); SODIUM,NA 139 mmol/L (136-148)
== END 2020-08-04 09:40 | disposition home or self-care (01) ==
LOC: MW.SDS 06:32
PROVIDERS: ATTEND Surgery
DX: Z12.11 Encounter for screening for malignant neoplasm of colon (principal); D12.3 Benign neoplasm of transverse colon; D12.2 Benign neoplasm of ascending colon; K57.30 Diverticulosis of large intestine without perforation or abscess without bleeding; E78.00 Pure hypercholesterolemia, unspecified; E66.9 Obesity, unspecified; K62.1 Rectal polyp; Z80.9 Family history of malignant neoplasm, unspecified; Z72.89 Other problems related to lifestyle; Z86.010 Personal history of colon polyps; Z98.890 Other specified postprocedural states; Z68.31 Body mass index [BMI] 31.0-31.9, adult
CPT/HCPCS: 36415; 45380; 71045; 80048; 83735; 84439; 84443; 84481; 85025; J0694; J2001; J2704; J3010; J3490; J7120; 00812; 88305

== ENCOUNTER 2021-06-25 02:06 | Emergency (ER) | payer MEDICARE, OTHER ==
[2021-06-25 02:22] VITALS: BP 138/69; PULSE 60
[2021-06-25] MEDS ORDERED: Acetaminophen/HYDROcodone 325-5 MG Tab PO ONE (02:44)
[2021-06-25] MEDS ORDERED: Sulfamethoxazole/Trimethoprim 800-160 MG Tab PO ONE (03:20)
[2021-06-25 03:23] LABS: BLOOD UREA NITROGEN,BUN 16 mg/dL (7.0-18.0); CARBON DIOXIDE,CO2 25.5 mmol/L (21.0-32.0); CHLORIDE,CL 101 mmol/L (98-107); GLUCOSE RANDOM 114 mg/dL (74-106); SODIUM,NA 138 mmol/L (136-148)
--- NOTE | 2021-06-25 03:34 | EDM.PDOC ---
ED HPI GENERAL MEDICAL PROBLEM - General Chief Complaint: Skin Complaint Stated Complaint: PAINFUL RASH ON LEGS Time Seen by Provider: 06/25/21 02:47 - History of Present Illness INITIAL COMMENTS - FREE TEXT/NARRATIVE: CHIEF COMPLAINT(S): Bilateral lower extremity rash HISTORY OF PRESENT ILLNESS: This is a 75-year-old man with a past medical history of hypertension, hyperlipidemia who is on anticoagulation who comes to the emergency department with a chief complaint of bilateral lower extremity rash. The patient states that for approximately 1 week now he has been experiencing bilateral lower extremity rash. He states that he followed up with his primary care physician who diagnosed him with chiggers and provided him with hydrocortisone cream. He states that since that time it has been okay however the last couple of days it has started to become painful. He states it is more painful when he walks on it. He denies any fevers, chills. He states that it looks about the same as when it first started however there are new little lesions that are going down to his ankles. He denies any exposures to anything. He denies any adame to anything. He states that he is not on antibiotics. REVIEW OF SYSTEMS: Constitutional: Denies fever, chills. Eyes: Denies eye pain Ears, Nose, Mouth, & Throat: Denies earache Cardiovascular: Denies chest pain Respiratory: Denies shortness of breath Gastrointestinal: Denies Nausea, vomiting, diarrhea, hematochezia. Genitourinary: Denies hematuria Skin: Positive for bilateral lower extremity rash MSK: Positive for lower extremity leg pain Neurological: Denies blurred vision Psychiatric: Denies depression PAST MEDICAL HISTORY: As per history of present illness and as reviewed below otherwise noncontributory. SURGICAL HISTORY: As per history of present illness and as reviewed below otherwise noncontributory. SOCIAL HISTORY: As per history of present illness and as reviewed below otherwise noncontributory. FAMILY HISTORY: As per history of present illness and as reviewed below otherwise noncontributory. EXAMINATION OF ORGAN SYSTEMS/BODY AREAS: Constitutional: Blood pressure is 138/69, heart rate 60, respiratory rate 15 with an oxygen saturation 98% on room air. Temperature 36 point General: Overall well-appearing man who is in no acute distress Psychiatric: Appropriate mood and affect. Eyes: No scleral icterus or conjunctival erythema ENMT: Moist mucous membranes. No pharyngeal erythema Cardiovascular: Regular, rate, and rhythm. No gallops, murmurs, or rubs. Bilateral upper extremity pulses symmetric and intact. No peripheral edema. No JVD. Respiratory: Lungs clear to auscultation bilaterally. No wheezes, rales, or rhonchi. Gastrointestinal: Soft, non-tender, non-distended. Normoactive bowel sounds Genitourinary: No suprapubic tenderness Musculoskeletal: Normal range of motion. Skin: There is bilateral lower extremity punctate macular lesions which are dark in color with underlying erythema. This area is warm and tender. There is no area of fluctuance. This is located in his bilateral lower extremities. No crepitus is noted. Neurological: Alert, GCS 15 MEDICAL DECISION MAKING AND COURSE IN THE ED WITH INTERPRETATION/REVIEW OF DIAGNOSTIC STUDIES: This is a 75-year-old man with a past medical history of hypertension, hyperlipidemia and recent diagnosis of chiggers who is on hydrocortisone who comes to the emergency department with bilateral lower extremity dark-colored macular lesions with surrounding erythema, tenderness and warmth. At this time I do suspect the possibility of cellulitis. The patient is afebrile and not tachycardic. Will obtain screening labs including CBC, coags, and lactic acid. We will provide the patient with [place] for pain relief and reevaluate. Laboratory analysis was unremarkable. We will provide the patient with Bactrim for the presumed infection. I encouraged the patient to follow-up with his intermission coordinator today at his scheduled appointment. He was given strict return precautions. The patient was amenable to discharge and had no further questions. DISPOSITION: The patient was discharged home in stable condition. The patient will follow up with primary care physician in 3 to 5 days and intermission coordinator today. CONDITION: Fair PROCEDURES: None FINAL IMPRESSION(S)/DIAGNOSES: 1. Acute bilateral lower extremity cellulitis José Luis Johnson M.D. leg Pain Score (Numeric/FACES): 3 - Related Data Allergies Allergy/AdvReac Type Severity Reaction Status Date / Time No Known Allergies Allergy Verified 07/31/20 13:33 Home Meds: Home Meds Sildenafil Citrate 40 - 60 mg PO ASDIRECTED PRN 01/07/20 [History] Apixaban [Eliquis] 5 mg PO DAILY 06/25/21 [History] Aspirin [[place] Aspirin] 81 mg PO DAILY 06/25/21 [History] Hydrocodone/Acetaminophen [HYDROcodone-Acetaminophen 5-325 MG] 1 each PO Q6H PRN #6 tab 06/25/21 [Rx] Losartan [Cozaar] 100 mg PO DAILY 06/25/21 [History] Metoprolol Succinate 25 mg PO DAILY 06/25/21 [History] Naloxone HCl [Narcan] 4 mg NS ONETIME #1 spray 06/25/21 [Rx] Rosuvastatin [Crestor] 10 mg PO DAILY 06/25/21 [History] Sulfamethoxazole/Trimethoprim [Bactrim Ds Tablet] 1 each PO BID #13 tablet 06/25/21 [Rx] Past Medical History HEENT History: Reports: Cataract Cardiovascular History: Reports: Afib, High Cholesterol Gastrointestinal History: Reports: Colon Polyp, Diverticulosis Genitourinary History: Reports: Renal Calculus Other Genitourinary History: hx of passing kidney stone Musculoskeletal History: Reports: Osteoarthritis Endocrine/Metabolic History: Reports: Obesity/BMI 30+ Oncologic (Cancer) History: Reports: Other (See Below) Other Oncologic History: skin cancer removed from nose- unknown type - Past Surgical History Head Surgeries/Procedures: Reports: None HEENT Surgical History: Reports: Cataract Surgery, Tonsillectomy Cardiovascular Surgical History: Reports: Carotid Endarterectomy GI Surgical History: Reports: Colonoscopy Musculoskeletal Surgical History: Reports: Knee Replacement, Other (See Below) Other Musculoskeletal Surgeries/Procedures:: bilateral TKA Dermatological Surgical History: Reports: Skin Biopsy Social & Family History - Family History Family Medical History: No Pertinent Family History - Tobacco Use Tobacco Use Status *Q: Never Tobacco User - Recreational Drug Use Recreational Drug Use: No ED ROS GENERAL - Review of Systems Review Of Systems: See Below ED EXAM, SKIN/RASH Exam: See Below Course - Vital Signs Last Recorded V/S: Last Vital Signs Temp 36.6 C 06/25/21 02:19 Pulse 60 06/25/21 02:19 Resp 17 06/25/21 03:45 BP 138/69 06/25/21 02:19 Pulse Ox 98 06/25/21 02:19 - Orders/Labs/Meds Labs: Laboratory Tests 06/25/21 06/25/21 06/25/21 Range/Units 02:40 02:40 02:40 WBC 11.79 H (4.0-11.0) K/uL RBC 4.93 (4.50-5.90) M/uL Hgb 15.0 (13.0-17.0) g/dL Hct 43.0 (38.0-50.0) % MCV 87.2 (80.0-98.0) fL MCH 30.4 (27.0-32.0) pg MCHC 34.9 (31.0-37.0) g/dL RDW Std Deviation 42.8 (28.0-62.0) fl RDW Coeff of Mckayla 13 (11.0-15.0) % Plt Count 259 (150-400) K/uL MPV 9.20 (7.40-12.00) fL Neut % (Auto) 73.5 (48.0-80.0) % Lymph % (Auto) 15.0 L (16.0-40.0) % [place] % (Auto) 8.1 (0.0-15.0) % Eos % (Auto) 3.1 (0.0-7.0) % Baso % (Auto) 0.3 (0.0-1.5) % Neut # (Auto) 8.7 H (1.4-5.7) K/uL Lymph # (Auto) 1.8 (0.6-2.4) K/uL [place] # (Auto) 1.0 H (0.0-0.8) K/uL Eos # (Auto) 0.4 (0.0-0.7) K/uL Baso # (Auto) 0.0 (0.0-0.1) K/uL Nucleated RBC % 0.0 /100WBC Nucleated RBCs # 0 K/uL INR 1.14 APTT 27.4 (18.6-31.3) SEC Sodium (136-148) mmol/L Potassium (3.5-5.1) mmol/L Chloride (98-107) mmol/L Carbon Dioxide (21.0-32.0) mmol/L BUN (7.0-18.0) mg/dL Creatinine (0.8-1.3) mg/dL Est Cr Clr Drug Dosing Estimated GFR (MDRD) ml/min Glucose (74-106) mg/dL Lactic Acid 1.1 (0.4-2.0) mmol/L Calcium (8.5-10.1) mg/dL Total Bilirubin (0.2-1.0) mg/dL AST (15-37) IU/L ALT (14-63) IU/L Alkaline Phosphatase (46-116) U/L Total Protein (6.4-8.2) g/dL Albumin (3.4-5.0) g/dL Globulin (2.6-4.0) g/dL Albumin/Globulin Ratio (0.9-1.6) 06/25/21 Range/Units 02:40 WBC (4.0-11.0) K/uL RBC (4.50-5.90) M/uL Hgb (13.0-17.0) g/dL Hct (38.0-50.0) % MCV (80.0-98.0) fL MCH (27.0-32.0) pg MCHC (31.0-37.0) g/dL RDW Std Deviation (28.0-62.0) fl RDW Coeff of Mckayla (11.0-15.0) % Plt Count (150-400) K/uL MPV (7.40-12.00) fL Neut % (Auto) (48.0-80.0) % Lymph % (Auto) (16.0-40.0) % [place] % (Auto) (0.0-15.0) % Eos % (Auto) (0.0-7.0) % Baso % (Auto) (0.0-1.5) % Neut # (Auto) (1.4-5.7) K/uL Lymph # (Auto) (0.6-2.4) K/uL [place] # (Auto) (0.0-0.8) K/uL Eos # (Auto) (0.0-0.7) K/uL Baso # (Auto) (0.0-0.1) K/uL Nucleated RBC % /100WBC Nucleated RBCs # K/uL INR APTT (18.6-31.3) SEC Sodium 138 (136-148) mmol/L Potassium 4.0 (3.5-5.1) mmol/L Chloride 101 (98-107) mmol/L Carbon Dioxide 25.5 (21.0-32.0) mmol/L BUN 16 (7.0-18.0) mg/dL Creatinine 1.0 (0.8-1.3) mg/dL Est Cr Clr Drug Dosing TNP Estimated GFR (MDRD) > 60.0 ml/min Glucose 114 H (74-106) mg/dL Lactic Acid (0.4-2.0) mmol/L Calcium 8.9 (8.5-10.1) mg/dL Total Bilirubin 1.0 (0.2-1.0) mg/dL AST 35 (15-37) IU/L ALT 35 (14-63) IU/L Alkaline Phosphatase 83 (46-116) U/L Total Protein 7.1 (6.4-8.2) g/dL Albumin 4.1 (3.4-5.0) g/dL Globulin 3.0 (2.6-4.0) g/dL Albumin/Globulin Ratio 1.4 (0.9-1.6) Meds: Medications Discontinued Medications Generic Name Dose Route Start Last Admin Trade Name Freq PRN Reason Stop Dose Admin Hydrocodone Bitart/Acetaminophen 1 tab 06/25/21 02:44 06/25/21 02:50 Acetaminophen/Hydrocodone 325-5 Mg Tab PO 06/25/21 02:45 1 tab ONETIME ONE Administration Trimethoprim/Sulfamethoxazole 1 tab 06/25/21 03:20 06/25/21 03:30 Sulfamethoxazole/Trimethoprim 800-160 Mg Tab PO 06/25/21 03:21 1 tab ONETIME ONE Administration Departure - Departure Time of Disposition: 03:31 Disposition: Home, Self-Care 01 Condition: Fair Clinical Impression: Cellulitis - Discharge Information *PRESCRIPTION DRUG MONITORING PROGRAM REVIEWED*: No *COPY OF PRESCRIPTION DRUG MONITORING REPORT IN PATIENT KARLEE: No Prescriptions: Sulfamethoxazole/Trimethoprim [Bactrim Ds Tablet] 1 each PO BID #13 tablet Hydrocodone/Acetaminophen [HYDROcodone-Acetaminophen 5-325 MG] 1 each PO Q6H PRN #6 tab PRN Reason: Pain (Severe 7-10) Naloxone HCl [Narcan] 4 mg NS ONETIME #1 spray Instructions: Cellulitis, Adult, [id number] Referrals: Nelson Portillo MD [Primary Care Provider] - Forms: ED Department Discharge Additional Instructions: You were evaluated today on an emergent basis. At this time I do believe that what ever bites you had are now infected. We did do labs all of which did show a mild elevation in your white count which is suggestive of infection otherwise they were normal. We did start you on a medication called Bactrim. I recommend that you take this as prescribed. It is important that you follow-up with a intermission coordinator today at your scheduled appointment. If you have any worsening sy mptoms such as worsening pain, inability to walk, worsening redness I would like you to return to the emergency department. I did prescribe you a pain medication which should be used intermittently for pain relief. [facility] [address] [place] [id number] [facility] [address] [place] [id number] [facility] [address] [place] [address], [address] [place] [address] [phone] The patient is informed of any results of their evaluation and diagnostic workup and all questions are answered. They are given discharge instructions and return precautions. The patient is stable for discharge. The patient states they understand and agree with the plan and that they will return if their symptoms get worse or if they have any new concerns. The following information is given to patients seen in the emergency department who are being discharged to home. This information is to outline your options for follow-up care. We provide all patients seen in our emergency department with a follow-up referral. The need for follow-up, as well as the timing and circumstances, are variable depending upon the specifics of your emergency department visit. If you don't have a primary care physician on staff, we will provide you with a referral. We always advise you to contact your personal physician following an emergency department visit to inform them of the circumstance of the visit and for follow-up with them and/or the need for any referrals to a consulting specialist. The emergency department will also refer you to a specialist when appropriate. This referral assures that you have the opportunity for follow-up care with a specialist. All of these measure are taken in an effort to provide you with optimal care, which includes your follow-up. Under all circumstances we always encourage you to contact your private physician who remains a resource for coordinating your care. When calling for follow-up care, please make the office aware that this follow-up is from your recent emergency room visit. If for any reason you are refused follow-up, please contact the [facility] Emergency Department at and asked to speak to the emergency department charge nurse. Sepsis Event Note (ED) - Evaluation Sepsis Screening Result: No Definite Risk - Focused Exam Vital Signs: Vital Signs Temp Pulse Resp BP Pulse Ox 06/25/21 03:45 17 06/25/21 02:19 36.6 C 60 15 138/69 98
== END 2021-06-25 03:46 | disposition home or self-care (01) ==
LOC: MW.ED 02:06
DX: L03.115 Cellulitis of right lower limb (principal); L03.116 Cellulitis of left lower limb; I48.91 Unspecified atrial fibrillation; I10 Essential (primary) hypertension; E78.00 Pure hypercholesterolemia, unspecified; M19.90 Unspecified osteoarthritis, unspecified site; E66.9 Obesity, unspecified; Z79.01 Long term (current) use of anticoagulants; Z79.82 Long term (current) use of aspirin; Z79.899 Other long term (current) drug therapy
CPT/HCPCS: 36415; 80053; 83605; 85025; 85610; 85730; 99283; A9270

== ENCOUNTER 2022-01-11 01:16 | Emergency (ER) | payer MEDICARE, OTHER ==
[2022-01-11 02:13] LABS: BLOOD UREA NITROGEN,BUN 16 mg/dL (7.0-18.0); CARBON DIOXIDE,CO2 24.9 mmol/L (21.0-32.0); CHLORIDE,CL 103 mmol/L (98-107); GLUCOSE RANDOM 141 mg/dL (74-106); POTASSIUM,K 3.7 mmol/L (3.5-5.1); SODIUM,NA 140 mmol/L (136-148)
[2022-01-11] MEDS ORDERED: Morphine 4 MG/ML VIAL IVPUSH ONE (02:40)
[2022-01-11 04:51] VITALS: BP 143/72; PULSE 56
== END 2022-01-11 04:52 | disposition home or self-care (01) ==
LOC: MW.ED 01:16
DX: R33.9 Retention of urine, unspecified (principal); R31.0 Gross hematuria; I48.91 Unspecified atrial fibrillation; E78.00 Pure hypercholesterolemia, unspecified; E66.9 Obesity, unspecified; Z68.31 Body mass index [BMI] 31.0-31.9, adult; Z79.899 Other long term (current) drug therapy; Z79.82 Long term (current) use of aspirin
CPT/HCPCS: 36415; 80048; 81001; 85025; 96374; 99283; J2270

== ENCOUNTER 2022-01-11 21:29 | Emergency (ER) | payer MEDICARE, OTHER ==
[2022-01-12 02:21] VITALS: BP 130/60; PULSE 66
== END 2022-01-12 02:21 | disposition home or self-care (01) ==
LOC: MW.ED 21:29
DX: T83.038A Leakage of other urinary catheter, initial encounter (principal); E78.00 Pure hypercholesterolemia, unspecified; E66.9 Obesity, unspecified; Z68.31 Body mass index [BMI] 31.0-31.9, adult; Z79.82 Long term (current) use of aspirin; Z79.899 Other long term (current) drug therapy
CPT/HCPCS: 99283

== ENCOUNTER 2022-01-24 00:43 | Emergency (ER) | payer MEDICARE, OTHER ==
[2022-01-24 00:59] VITALS: BP 149/65; PULSE 72
[2022-01-24] MEDS ORDERED: Sodium Chloride 0.9% 2.5 ML Syringe FLUSH PRN (01:29)
[2022-01-24] MEDS ORDERED: Sodium Chloride 0.9% 10 ML Syringe FLUSH PRN (01:29)
[2022-01-24] MEDS ORDERED: fentaNYL 50 MCG/ML SDV IVPUSH ONE (01:56)
[2022-01-24 02:28] LABS: BLOOD UREA NITROGEN,BUN 14 mg/dL (7.0-18.0); CARBON DIOXIDE,CO2 25.5 mmol/L (21.0-32.0); CHLORIDE,CL 102 mmol/L (98-107); GLUCOSE RANDOM 130 mg/dL (74-106); POTASSIUM,K 4.2 mmol/L (3.5-5.1); SODIUM,NA 137 mmol/L (136-148)
== END 2022-01-24 06:30 | disposition home or self-care (01) ==
LOC: MW.ED 00:43
DX: R31.0 Gross hematuria (principal); I48.91 Unspecified atrial fibrillation; M19.90 Unspecified osteoarthritis, unspecified site; E78.00 Pure hypercholesterolemia, unspecified; E66.9 Obesity, unspecified; Z68.31 Body mass index [BMI] 31.0-31.9, adult; Z79.82 Long term (current) use of aspirin; Z79.01 Long term (current) use of anticoagulants; Z79.899 Other long term (current) drug therapy
CPT/HCPCS: 36415; 51702; 74176; 80053; 81001; 85025; 85610; 85730; 96374; 99284; J3010

== ENCOUNTER 2022-01-24 18:50 | Emergency (ER) | payer MEDICARE, OTHER ==
[2022-01-24 19:06] VITALS: BP 136/65; PULSE 69
== END 2022-01-24 19:52 | disposition home health service (06) ==
LOC: MW.ED 18:50
DX: Z53.21 Procedure and treatment not carried out due to patient leaving prior to being seen by health care provider (principal)

== ENCOUNTER 2023-05-31 09:08 | Emergency (ER) | payer MEDICARE, OTHER ==
[2023-05-31 09:44] LABS: APPEARANCE,URINE CLOUDY; COLOR,URINE RED; GLUCOSE,URINE NEGATIVE (NEGATIVE); KETONES,URINE NEGATIVE (NEGATIVE); LEUKOCYTE ESTERASE,URINE LARGE (NEGATIVE); NITRITE,URINE POSITIVE (NEGATIVE); OCCULT BLOOD,URINE MODERATE (NEGATIVE); PH,URINE 8.5 (5.0-8.0); PROTEIN,URINE >=300 mg/dL (NEGATIVE)
[2023-05-31 09:47] LABS: BILIRUBIN,URINE SMALL (NEGATIVE)
[2023-05-31 09:58] LABS: BACTERIA,URINE 3+ (NEGATIVE); EPITHELIAL CELLS,URINE RARE (NONE-FEW); MUCUS,URINE HEAVY (NONE-MOD); RBC,URINE TOO NUMEROUS TO CT (0-2/HPF); TRIPLE PHOSPHATE CRYSTALS,UR MODERATE (NEGATIVE); WBC,URINE 30-40 (0-5/HPF)
[2023-05-31] MEDS ORDERED: Ciprofloxacin 500 MG Tab PO ONE (10:07)
[2023-05-31 10:20] VITALS: BP 119/64; PULSE 86
== END 2023-05-31 10:19 | disposition home or self-care (01) ==
LOC: MW.ED 09:08
DX: N30.90 Cystitis, unspecified without hematuria (principal); I48.91 Unspecified atrial fibrillation; E78.00 Pure hypercholesterolemia, unspecified; I10 Essential (primary) hypertension; M19.90 Unspecified osteoarthritis, unspecified site; E66.9 Obesity, unspecified; Z86.16 Personal history of COVID-19; Z79.01 Long term (current) use of anticoagulants; Z79.84 Long term (current) use of oral hypoglycemic drugs; Z79.899 Other long term (current) drug therapy; Z68.32 Body mass index [BMI] 32.0-32.9, adult
CPT/HCPCS: 81001; 87086; 87088; 87186; 99283

== ENCOUNTER 2023-11-14 06:39 | Day surgery (SDC) | payer MEDICARE, OTHER ==
[2023-11-14] MEDS ORDERED: Propofol 200 MG/20 ML SDV ONE (07:59)
[2023-11-14] MEDS ORDERED: Lidocaine 2% 5 ML SDV ONE (07:59)
[2023-11-14] MEDS ORDERED: Lactated Ringers 1,000 ML IV SCH ×2 (08:00→09:15)
[2023-11-14 09:02] VITALS: BP 93/41; PULSE 49
== END 2023-11-14 09:25 | disposition home or self-care (01) ==
LOC: MW.SDS 06:39
PROVIDERS: ATTEND Surgery
DX: D12.2 Benign neoplasm of ascending colon (principal); K57.30 Diverticulosis of large intestine without perforation or abscess without bleeding; G47.30 Sleep apnea, unspecified; E78.5 Hyperlipidemia, unspecified; K62.1 Rectal polyp; R10.9 Unspecified abdominal pain; I10 Essential (primary) hypertension; K63.5 Polyp of colon; D12.6 Benign neoplasm of colon, unspecified; K57.90 Diverticulosis of intestine, part unspecified, without perforation or abscess without bleeding
CPT/HCPCS: 45380; 88305; J2704; J7120; 00811; 99100; J3490